=== PATIENT | female | born 1990 | race American Indian/Alaskan Native ===

== ENCOUNTER 2018-01-31 14:19 | Emergency (ER) | payer BC ==
[2018-01-31] MEDS ORDERED: Sodium Chloride 0.9% 1,000 ML IV ONE (16:17)
[2018-01-31] MEDS ORDERED: Sodium Chloride 0.9% 1,000 ML ONE (16:38)
[2018-01-31 16:40] LABS: BASO % 0.7 % (0.0-2.0); EOS # 0.1 K/uL (0.0-0.7); EOS % 1.1 % (0.0-4.0); HEMOGLOBIN 11.4 g/dL (11.0-16.0); LYMPH # 1.6 K/uL (1.0-4.3); LYMPH % 23.6 % (20.0-40.0); MEAN CELL VOLUME 80.8 fL (81.0-99.0); MEAN CORPUSCULAR HEMOGLOBIN 26.3 pg (27.0-31.0); MEAN CORPUSCULAR HGB CONC 32.6 g/dL (33.0-37.0); MONO # 0.6 K/uL (0.0-0.8); MONO % 8.7 % (0.0-10.0); NEUT # 4.5 K/uL (1.8-7.0); NEUT % 65.9 % (50.0-75.0); NRBC % 0.1 % (0.0-2.0); RBC 4.34 Mil/uL (3.80-5.20); RED CELL DISTRIBUTION WIDTH 14.7 % (11.5-14.5); WHITE BLOOD COUNT 6.9 K/uL (4.8-10.8)
[2018-01-31 16:41] LABS: HCG,QUALITATIVE URINE NEGATIVE (NEGATIVE)
[2018-01-31 16:46] LABS: SQUAMOUS EPITHIAL 3 /hpf (0-5); URINE BILIRUBIN NEGATIVE (NEGATIVE); URINE BLOOD 1+ (NEGATIVE); URINE CLARITY Clear (Clear); URINE COLOR Yellow (YELLOW); URINE GLUCOSE (UA) NORMAL (Normal); URINE LEUKOCYTE ESTERASE NEG Leu/uL (Negative); URINE PROTEIN NEGATIVE (NEGATIVE); URINE UROBILINOGEN NORMAL mg/dL (0.2-1.0)
[2018-01-31 16:51] LABS: ALB/GLOB RATIO 1.2 (1.0-2.1); ALBUMIN 4.2 g/dL (3.5-5.0); ALT/SGPT 42 U/L (9-52); AST/SGOT 24 U/L (14-36); BLOOD UREA NITROGEN 11 mg/dL (7-17); CALCIUM 9.5 mg/dl (8.6-10.4); GFR NON-AFRICAN AMERICAN > 60; LIPASE 61 U/L (23-300)
--- NOTE | 2018-01-31 17:22 | C.PDOC ---
History Of Present Illness 27 year old female, with no significant PMHx, presents to the ED for evaluation of abdominal pain which began one week ago. She notes pain is around her right lower quadrant and notes she felt warm earlier this week. Patient states her pain is worse with deep breathing and laughing and relieved when lying down. She denies fever, nausea, vomiting, diarrhea. LMP was 01/17. PMD: Marquez Everett Time Seen by Provider: 01/31/18 15:54 Chief Complaint (Nursing): Abdominal Pain History Per: Patient History/Exam Limitations: no limitations Onset/Duration Of Symptoms: Days Current Symptoms Are (Timing): Still Present Location Of Pain/Discomfort: RLQ Radiation Of Pain To:: None Quality Of Discomfort: "Pain" Associated Symptoms: denies: Fever, Nausea, Vomiting, Diarrhea Exacerbating Factors: Deep Breaths Additional History Per: Patient Abnormal Vaginal Bleeding: No Last Menstral Period: 01/17/18 Past Medical History Reviewed: Historical Data, Nursing Documentation, Vital Signs Vital Signs: Last Vital Signs Temp 98.6 F 01/31/18 14:26 Pulse 75 01/31/18 14:26 Resp 20 01/31/18 14:26 BP 129/89 01/31/18 14:26 Pulse Ox 100 01/31/18 14:26 - Medical History PMH: No Chronic Diseases Surgical History: No Surg Hx Family History: States: Unknown Family Hx - Social History Hx Alcohol Use: Yes Hx Substance Use: No - Immunization History Hx Tetanus Toxoid Vaccination: (unk) Hx Influenza Vaccination: No Hx Pneumococcal Vaccination: (unk) Review Of Systems Constitutional: Negative for: Fever Gastrointestinal: Positive for: Abdominal Pain (right lower quadrant ). Negative for: Nausea, Vomiting, Diarrhea Physical Exam - Physical Exam Appears: Non-toxic, No Acute Distress, Other (obese ) Skin: Normal Color, Warm, Dry Head: Atraumatic, Normacephalic Eye(s): bilateral: Normal Inspection Oral Mucosa: Moist Neck: Supple Chest: Symmetrical, No Deformity, No Tenderness Cardiovascular: Rhythm Regular, No Murmur Respiratory: Normal Breath Sounds, No Rales, No Rhonchi, No Wheezing Gastrointestinal/Abdominal: Soft, Tenderness (diffuse, mostly around right upper and lower quadrants and suprapubic region), No Guarding, No Rebound Extremity: Normal ROM, Capillary Refill (less than 2 seconds ) Neurological/Psych: Oriented x3, Normal Speech, Normal Cognition ED Course And Treatment - Laboratory Results Result Diagrams: 01/31/18 16:35 01/31/18 16:35 O2 Sat by Pulse Oximetry: 100 (on RA) Pulse Ox Interpretation: Normal Medical Decision Making Medical Decision Making: Impression: 27 year old female with abdominal pain Plan: * bloodwork * urinalysis * Obstructive Series XR * Abdomen US * Pelvic/Transvaginal US * IV Fluids * reassess and disposition Progress: Bloodwork, urinalysis, Obstructive Series Abdomen XR, Abdomen US, Pelvic/Transvaginal US ordered and reviewed. IV Fluids given. Disposition Counseled Patient/Family Regarding: Studies Performed, Diagnosis, Need For Followup, Rx Given - Disposition Disposition: HOME/ ROUTINE Disposition Time: 18:52 Condition: STABLE Additional Instructions: Follow up with your psychology physician for further evaluation of your ovarian cyst. Prescriptions: Ibuprofen [Motrin] 600 mg PO TID #15 tab Instructions: Ovarian Cyst (DC) Forms: [facility] (Arabic), General Discharge Instructions - POA Present On Arrival: None - Clinical Impression Clinical Impression: Abdominal pain, Ovarian cyst - Scribe Statement The provider has reviewed the documentation as recorded by the Scribe (Adilia Mesa) Provider Attestation: All medical record entries made by the Scribe were at my direction and personally dictated by me. I have reviewed the chart and agree that the record accurately reflects my personal performance of the history, physical exam, medical decision making, and the department course for this patient. I have also personally directed, reviewed, and agree with the discharge instructions and disposition.
--- NOTE | 2018-01-31 18:05 | US ---
Date of service: 01/31/2018 HISTORY: abd pain COMPARISON: None. TECHNIQUE: Sonographic evaluation of the right upper quadrant of the abdomen. FINDINGS: LIVER: Measures 17.0 cm in length. Overall echogenicity of liver parenchyma is normal relative to the kidney, however, there is a 1.2 x 0.6 x 0.6 cm echogenic focus at the right lobe anteriorly with dirty shadowing suggestive of probable benign hemangioma. This should be confirmed by MRI or CT with and without contrast. No intrahepatic bile duct dilatation. Normal directional blood flow is appreciated the portal and hepatic veins. GALLBLADDER: Unremarkable. No gallstones. COMMON BILE DUCT: Measures 5.6 mm. No stones. No dilatation. PANCREAS: Unremarkable as visualized. No mass. No ductal dilatation. RIGHT KIDNEY: Measures 9.7 cm in length. Normal echogenicity. No calculus, mass, or hydronephrosis. AORTA: No aneurysmal dilatation. IVC: Unremarkable. OTHER FINDINGS: None . IMPRESSION: Probable 1.2 cm benign hemangioma right lobe liver which can be better imaged by MRI or CT with and without contrast. This should be an elective procedure. Exam is otherwise unremarkable.
--- NOTE | 2018-01-31 18:08 | US ---
Date of service: 01/31/2018 HISTORY: RLQ/ r/o appendecitis COMPARISON: None. TECHNIQUE: Sonographic evaluation of the right upper quadrant of the abdomen. FINDINGS: Interrogation of the right lower quadrant was performed in longitudinal and transverse projections to attempt to identify the appendix. The appendix was not identified and therefore appendicitis is not excluded. Consider follow-up abdomen pelvis CT with oral and intravenous contrast if this remains of clinical concern. Unremarkable bowel loops are identified. OTHER FINDINGS: None . IMPRESSION: Unremarkable right lower quadrant abdomen ultrasound. Appendix not identified. Clinically correlate as to whether additional imaging is required for potential appendicitis. See discussion above.
--- NOTE | 2018-01-31 18:18 | US ---
Date of service: 01/31/2018 PROCEDURE: TRANSABDOMINAL AND TRANSVAGINAL PELVIC ULTRASONOGRAPHY HISTORY: RLQ pain r/o ovarian torsion COMPARISON: None available. TECHNIQUE: Transabdominal and transvaginal pelvic ultrasound was performed with longitudinal and transverse images submitted for interpretation. FINDINGS: The uterus is anteverted measuring 10.1 x 4.6 x 4.6 cm, moderately enlarged. Myometrium is remarkable only for a mixed echogenicity structure bridging the sub serosal and submucous spaces at the high posterior fundus representing a fibroid measuring 2.1 x 1.9 x 2.3 cm. The uterus is otherwise unremarkable appearing. No suspicious cervix findings. Endometrium is thickened up to 11.0 mm and nonfocal. The right ovary is enlarged measuring 6.4 x 2.3 x 4.6 cm complicated by apparent cystic changes. Complex cyst is identified measuring 2.3 x 2.8 x 2.4 cm at the upper anterior segment appearing predominate hypoechoic but with a thick internal septation. This structure is avascular on color per ultrasound. At the posterior inferior segment there is a 2.5 x 2.4 x 2.2 cm mixed echogenicity cystic or solid lesion with with a thin hyperlucency surrounding thicker hyperechoic peripheral margins. This is also avascular. The left ovary measures 4.1 x 2.7 x 3.5 cm with a creating follicle identified measuring 2.3 x 2.3 x 2.3 cm. IMPRESSION: 1. Enlarged right ovary up to 6.4 cm greatest dimension with 2 complex foci with the more anterior suggestive of a cyst in the more posterior suggests of the complex solid/cystic lesion. Clinical correlation is advised as well as follow-up transvaginal ultrasonography in 6-8 weeks or possibly MRI. 2. Creating follicle left ovary 2.3 cm. 3. 2.5 cm posterior high fundal fibroid identified at the uterus.
[2018-01-31 18:38] VITALS: BP 119/79; PULSE 70; RESP 18; TEMP 98.8
[2018-01-31 18:54] VITALS: O2SAT 100
--- NOTE | 2018-02-01 09:32 | RAD ---
Date of service: 01/31/2018 PROCEDURE: Radiographs of the chest and abdomen (obstructive series) HISTORY: abd pain COMPARISON: No prior. TECHNIQUE: AP radiograph of the chest, with upright and supine radiographs of the abdomen. FINDINGS: CHEST: Lungs: Clear. Cardiovascular: Normal size heart. No pulmonary vascular congestion. Pleura: No pleural fluid. No pneumothorax. Other findings: None. ABDOMEN AND PELVIS: Bowel: Unremarkable bowel gas pattern. No evidence of mechanical obstruction. Free air: None. Bones: Unremarkable. Other findings: None. IMPRESSION: Unremarkable radiographs of chest and abdomen. No evidence of mechanical bowel obstruction.
== END 2018-01-31 19:31 | disposition home or self-care (01) ==
LOC: C.ER 14:19
DX: R10.9 Unspecified abdominal pain (principal); N83.201 Unspecified ovarian cyst, right side
CPT/HCPCS: 74022; 76705; 76830; 76856; 80053; 81001; 83690; 84703; 85025; 96361; 96374; 99284; J1885; J7030